=== PATIENT | male | born 1935 | race Caucasian/White ===

== ENCOUNTER → 2017-06-01 | Outpatient (CLI) | payer OTHER ==
[~2017-06-01] MED LIST: ACTEMRA; ACTEMRA80 MG/4 ML; APAP500 PO; ARAVA20 MG PO; AZULFIDINE PO; BENADRYL25 MG; CALCIUM 600 +1 EAC1 PO; CALCIUM PO; CARBIDOPA-LEVO1 EAC9 PO; CARBIDOPA/LEVO1 TAB PO; COLACE100 MG; CYCLOBENZAPRINE10 MG PO; ELEMENTAL CALC600 MG PO; ENBREL; FOLIC ACID1 MG PO; FOSAMAX 70 MG T70 M1 PO; FUROSEMIDE 20 M20 M1 PO; GABAPENTIN PO; GABAPENTIN100 MG PO; HYDROCODON-ACE1 EAC5; HYDROCODON-ACE1 EAC5 PO; HYDROCODONE PO; HYDROCODONE-AP1 EAC6 PO; K-DUR 20 MEQ T20 MEQ; K-DUR 20 MEQ T20 MEQ PO; KEFLEX500 MG PO; LEVOTHROID PO; LEVOTHYROXIN0.125 M1 PO; LISINOPRIL40 MG PO; LOSARTAN POTAS100 MG PO; LOVENOX; MECLIZINE HCL25 M1 PO; METAMUCIL PAC1 UDPK1; NEURONTIN600 MG PO; OMEGA 3,6,9 PO; OMEGA 3-6-9 CO1 EACH PO; PREDNISONE 10 M10 M1 PO; PREDNISONE 5 MG5 M1 PO; PREDNISONE PO; SERTRALINE HCL50 MG PO; SULFASALAZINE500 M5 PO; TESSALON PERLE100 MG PO; TL-FOL 500 CAP1 EACH PO; TYLENOL EX-STR500 M2; TYLENOL EX-STR500 M2 PO; VIT B1 PO; VIT B12 PO; VITAMIN B-1100 M1 PO; VITAMIN D-3 PO; VITAMIN D3 PO; VITAMIN D35000 UNI1 PO; XELJANZ5 MG PO; ZETIA10 MG PO; ZOFRAN4 MG PO
== END ==
LOC: M.RAD 13:44
DX: J98.11 Atelectasis (principal); J98.4 Other disorders of lung

== ENCOUNTER → 2018-08-19 | Outpatient (CLI) | payer OTHER ==
[2018-08-19 18:14] LABS: ALBUMIN 3.1 g/dL (3.4-5.0); CALCIUM 9.5 mg/dL (8.5-10.1); CREATININE 2.2 mg/dL (0.6-1.3); POTASSIUM 4.2 mmol/L (3.5-5.1); TOTAL BILIRUBIN 0.4 mg/dL (<0.1-1.0); TOTAL PROTEIN 7.7 g/dL (6.4-8.2)
== END ==
LOC: M.LAB 16:30 → M.CT 17:13
PROVIDERS: Family Medicine
DX: I12.9 Hypertensive chronic kidney disease with stage 1 through stage 4 chronic kidney disease, or unspecified chronic kidney disease (principal); N18.3 Chronic kidney disease, stage 3 (moderate); J18.9 Pneumonia, unspecified organism; I70.0 Atherosclerosis of aorta; I25.10 Atherosclerotic heart disease of native coronary artery without angina pectoris; D73.89 Other diseases of spleen; N28.1 Cyst of kidney, acquired; Z96.642 Presence of left artificial hip joint

== ENCOUNTER → 2018-09-10 | Outpatient (CLI) | payer OTHER | LOC: M.RAD 13:41 | DX: J18.9 Pneumonia, unspecified organism (principal); J98.4 Other disorders of lung ==

== ENCOUNTER → 2018-09-13 | Outpatient (CLI) | payer OTHER | LOC: M.CT 12:37 | DX: J43.1 Panlobular emphysema (principal); J98.4 Other disorders of lung; I70.0 Atherosclerosis of aorta; M47.814 Spondylosis without myelopathy or radiculopathy, thoracic region; M25.412 Effusion, left shoulder; M25.411 Effusion, right shoulder ==